=== PATIENT | male | born 1955 | race Caucasian/White ===

== ENCOUNTER 2023-09-29 19:34 | Emergency (ER) | payer MEDICARE ==
[~2023-09-29] VITALS: Ht 182.8 cm; Wt 71.2 kg
[2023-09-29] MEDS ORDERED: Ziprasidone Mesylate 20 MG VIAL IM ONE (19:50)
[2023-09-29 21:14] LABS: BILIRUBIN Negative (Negative); BLOOD 3+ (Negative); CLARITY Clear (Clear); COLOR Orange (Yellow); GLUCOSE Negative (Negative); KETONE Negative (Negative); LEUKO ESTERASE Negative (Negative); NITRITE Negative (Negative); PH 6.5 (4.5-8.0); UROBILINOGEN 0.2 E.U./dl (0.0-1.0)
[2023-09-29 21:17] LABS: BASO # 0.1 10*3/uL (0.0-0.1); EOS # 0.1 10*3/uL (0.0-0.4); HEMATOCRIT 41.8 % (42.0-52.0); LYMPH % 27.4 % (27.0-41.0); MEAN CELL VOLUME 91.1 fl (80.0-94.0); MEAN CORPUSCULAR HGB 28.8 pg (27.0-31.0); MEAN CORPUSCULAR HGB CONC 31.6 g/dl (33.0-37.0); MEAN PLATELET VOLUME 10.3 fl (9.6-12.3); MONO # 0.8 10*3/uL (0.1-1.0); MONO % 11.1 % (3.0-9.0); NEUT # 4.3 10*3/uL (2.3-7.9); NEUT % 58.4 % (47.0-73.0); PLATELET COUNT AUTOMATED 281 10*3/uL (130-400); RED BLOOD COUNT 4.59 10*6/uL (4.50-5.90); RED CELL DISTRI WIDTH 17.2 % (0-14.5); WHITE BLOOD COUNT 7.3 10*3/uL (4.8-10.8)
[2023-09-29 21:21] LABS: BACTERIA 1+; RBC TNTC rbc/hpf (0-2); URINE AMPHETAMINES Negative (1000ng/ml); URINE BARBITURATES Negative (200ng/ml); URINE BENZODIAZEPINES Negative (200ng/ml); URINE CANNABINOIDS (THC) Negative (50ng/ml); URINE COCAINE Negative (300ng/ml); URINE METHADONE Negative (300ng/ml); URINE OPIATES Negative (300ng/ml); URINE PHENCYCLIDINE Negative (25ng/ml)
[2023-09-29 21:37] LABS: ALKALINE PHOSPHATASE 91 U/L (46-116); BUN 17 mg/dl (9-23); CHLORIDE 102 mmol/L (98-107); CPK 66 U/L (34-171); POTASSIUM 4.2 mmol/L (3.4-5.1); SGPT/ALT 17 U/L (5-49); TOTAL PROTEIN 7.6 gm/dL (6.0-8.0)
[2023-09-29 21:38] LABS: ETHYL ALCOHOL < 3.0 mg/dl (<3)
[2023-09-29] MEDS ORDERED: VITAMIN D250 MC1 PO (23:19)
[2023-09-29] MEDS ORDERED: RISPERDAL CONST25 MG IM (23:22)
[2023-09-29] MEDS ORDERED: RISPERDAL0.5 MG PO (23:23)
[2023-09-29] MEDS ORDERED: DEPAKENE S250 MG/5 M PO (23:24)
[2023-09-29] MEDS ORDERED: DULCOLAX10 M1 R (23:26)
[2023-09-29] MEDS ORDERED: EXELON1 EAC1 T (23:29)
== END 2023-09-30 00:38 | disposition home or self-care (01) ==
LOC: ED 19:34
PROVIDERS: Nurse Practitioner Family
DX: F63.81 Intermittent explosive disorder (principal); Z20.822 Contact with and (suspected) exposure to COVID-19; F03.90 Unspecified dementia, unspecified severity, without behavioral disturbance, psychotic disturbance, mood disturbance, and anxiety; Z79.899 Other long term (current) drug therapy

== ENCOUNTER 2023-09-29 22:59 | Inpatient (IN) | payer MEDICARE ==
[~2023-09-29] VITALS: Ht 172.7 cm; Wt 66.7 kg
[2023-09-29] MEDS ORDERED: VITAMIN D250 MC1 PO (23:19)
[2023-09-29] MEDS ORDERED: RISPERDAL CONST25 MG IM (23:22)
[2023-09-29] MEDS ORDERED: RISPERDAL0.5 MG PO (23:23)
[2023-09-29] MEDS ORDERED: DEPAKENE S250 MG/5 M PO (23:24)
[2023-09-29] MEDS ORDERED: DULCOLAX10 M1 R (23:26)
[2023-09-29] MEDS ORDERED: EXELON1 EAC1 T (23:29)
[2023-09-29] MEDS ORDERED: LORazepam 1 MG TAB PO PRN (23:35)
[2023-09-29] MEDS ORDERED: Ziprasidone Mesylate 20 MG VIAL IM PRN (23:35)
[2023-09-30] MEDS ORDERED: Magnesium Hydroxide 30 ML UDC PO PRN (00:35)
[2023-09-30] MEDS ORDERED: MG-AL HYDROXIDE/SIMETICONE 30 ML UDC PO PRN (00:35)
[2023-09-30] MEDS ORDERED: ACETAMINOPHEN 325 MG TAB PO PRN (00:35)
[2023-09-30 00:40] VITALS: BP 132/76
[2023-09-30] MEDS ORDERED: Menthol/Zinc Oxide 4 GM THIN T PRN (00:40)
[2023-09-30 08:00] VITALS: BP 132/76
[2023-09-30 08:19] LABS: VITAMIN D, 25-HYDROXY 26.9 ng/mL (30-100)
[2023-09-30] MEDS ORDERED: Rivastigmine Tartrate 9.5 MG/24 HR PATCH T SCH (09:00)
[2023-09-30] MEDS ORDERED: RISPERIDONE 1 MG TAB PO SCH (09:00)
[2023-09-30 20:00] VITALS: BP 108/57
[2023-09-30] MEDS ORDERED: Memantine Hydrochloride 5 MG TAB PO SCH (21:00)
[2023-09-30] MEDS ORDERED: RISPERIDONE 1 MG ODT BC SCH (21:00)
[2023-09-30] MEDS ORDERED: Ziprasidone Mesylate 20 MG VIAL IM ONE (21:10)
[2023-09-30] MEDS ORDERED: LORazepam 1 MG TAB PO ONE (21:15)
[2023-09-30] MEDS ORDERED: Water, Sterile 10 ML VIAL IM ONE (21:25)
[2023-09-30] MEDS ORDERED: DIVALPROEX SODIUM 125 MG CAP PO SCH (21:42)
[2023-10-01 08:00] VITALS: BP 108/95
[2023-10-01] MEDS ORDERED: CITALOPRAM 20 MG TAB PO SCH (09:00)
[2023-10-01] MEDS ORDERED: ERGOCALCIFEROL 50,000 IU CAP (1.25 MG) PO ONE ×2 (09:45→16:15)
[2023-10-01] MEDS ORDERED: hydrOXYzine hydrochloride 50 MG/ML VIAL IM PRN (17:40)
[2023-10-01] MEDS ORDERED: hydrOXYzine hydrochloride 50 MG/ML VIAL IM ONE (20:20)
[2023-10-01] MEDS ORDERED: Ziprasidone Mesylate 20 MG VIAL IM ONE (20:20)
[2023-10-01] MEDS ORDERED: Water, Sterile 10 ML VIAL IM ONE (20:20)
[2023-10-01] MEDS ORDERED: Water, Sterile 10 ML VIAL ONE (20:29)
[2023-10-02 08:00] VITALS: BP 111/55
[2023-10-02] MEDS ORDERED: Memantine Hydrochloride 5 MG TAB PO SCH (09:00)
[2023-10-02 10:10] LABS: BASO # 0.1 10*3/uL (0.0-0.1); BASO % 0.8 % (0.0-1.0); EOS # 0.1 10*3/uL (0.0-0.4); EOS % 1.4 % (1.0-4.0); HEMATOCRIT 38.1 % (42.0-52.0); LYMPH # 1.7 10*3/uL (1.3-4.4); LYMPH % 22.4 % (27.0-41.0); MEAN CELL VOLUME 91.1 fl (80.0-94.0); MEAN CORPUSCULAR HGB 29.2 pg (27.0-31.0); MEAN PLATELET VOLUME 10.7 fl (9.6-12.3); MONO # 0.9 10*3/uL (0.1-1.0); MONO % 12.1 % (3.0-9.0); NEUT # 4.6 10*3/uL (2.3-7.9); NEUT % 62.8 % (47.0-73.0); PLATELET COUNT AUTOMATED 267 10*3/uL (130-400); RED BLOOD COUNT 4.18 10*6/uL (4.50-5.90); RED CELL DISTRI WIDTH 17.1 % (0-14.5); WHITE BLOOD COUNT 7.4 10*3/uL (4.8-10.8)
[2023-10-02 10:31] LABS: ALKALINE PHOSPHATASE 87 U/L (46-116); BUN 15 mg/dl (9-23); CHLORIDE 105 mmol/L (98-107); SGPT/ALT 14 U/L (5-49); TOTAL PROTEIN 7.1 gm/dL (6.0-8.0)
[2023-10-02] MEDS ORDERED: Albuterol Sulf/Ipratropium 3 ML VIAL NEB PRN ×2 (12:00→15:30)
[2023-10-02] MEDS ORDERED: Ziprasidone Mesylate 20 MG VIAL IM PRN (20:50)
[2023-10-02] MEDS ORDERED: Water, Sterile 10 ML VIAL IM PRN (20:55)
[2023-10-02] MEDS ORDERED: LORazepam 1 MG TAB PO PRN (20:58)
[2023-10-03 09:18] VITALS: BP 112/90
[2023-10-03] MEDS ORDERED: CITALOPRAM 20 MG TAB PO SCH (09:55)
[2023-10-03] MEDS ORDERED: Ziprasidone Mesylate 20 MG VIAL IM PRN (10:00)
[2023-10-03] MEDS ORDERED: Memantine Hydrochloride 10 MG TAB PO SCH ×2 (11:20→21:00)
[2023-10-03] MEDS ORDERED: RIVASTIGMINE 13.3 MG/24 HR TDM T SCH (11:55)
[2023-10-03] MEDS ORDERED: DIVALPROEX SODIUM 125 MG CAP PO SCH (13:00)
[2023-10-03 20:00] VITALS: BP 136/91
[2023-10-03] MEDS ORDERED: Haloperidol Lactate 5 MG/ML AMP IM PRN (21:35)
[2023-10-04 08:00] VITALS: BP 122/72
[2023-10-04] MEDS ORDERED: RIVASTIGMINE 13.3 MG/24 HR TDM T SCH (09:00)
[2023-10-04] MEDS ORDERED: medroxyPROGESTERone acetate 10 MG TAB PO SCH (13:00)
[2023-10-04 20:00] VITALS: BP 120/82
[2023-10-05 07:33] VITALS: BP 124/70
[2023-10-05] MEDS ORDERED: RISPERIDONE 1 MG ODT BC SCH (13:00)
[2023-10-05] MEDS ORDERED: GUAIFENESIN 600 MG TAB ER PO SCH (13:55)
[2023-10-05 20:00] VITALS: BP 119/76
[2023-10-06 08:00] VITALS: BP 102/58
[2023-10-06 20:00] VITALS: BP 135/80
[2023-10-06] MEDS ORDERED: medroxyPROGESTERone acetate 10 MG TAB PO SCH (21:00)
[2023-10-07 07:38] VITALS: BP 131/77
[2023-10-07] MEDS ORDERED: DIVALPROEX SODIUM 125 MG CAP PO SCH (13:00)
[2023-10-07 20:00] VITALS: BP 115/93
[2023-10-07] MEDS ORDERED: GUAIFENESIN 10 ML UDC PO PRN (20:50)
[2023-10-08 07:51] VITALS: BP 126/72
[2023-10-08] MEDS ORDERED: ERGOCALCIFEROL 50,000 IU CAP (1.25 MG) PO SCH (09:00)
[2023-10-08 20:00] VITALS: BP 141/68
[2023-10-09 07:05] LABS: BASO # 0.1 10*3/uL (0.0-0.1); BASO % 0.5 % (0.0-1.0); HEMATOCRIT 40.9 % (42.0-52.0); LYMPH # 1.3 10*3/uL (1.3-4.4); LYMPH % 11.7 % (27.0-41.0); MEAN CELL VOLUME 90.3 fl (80.0-94.0); MEAN CORPUSCULAR HGB 29.6 pg (27.0-31.0); MEAN CORPUSCULAR HGB CONC 32.8 g/dl (33.0-37.0); MEAN PLATELET VOLUME 10.2 fl (9.6-12.3); MONO # 1.3 10*3/uL (0.1-1.0); MONO % 11.6 % (3.0-9.0); NEUT # 8.1 10*3/uL (2.3-7.9); NEUT % 75.8 % (47.0-73.0); PLATELET COUNT AUTOMATED 290 10*3/uL (130-400); RED BLOOD COUNT 4.53 10*6/uL (4.50-5.90); RED CELL DISTRI WIDTH 16.5 % (0-14.5); WHITE BLOOD COUNT 10.7 10*3/uL (4.8-10.8)
[2023-10-09 07:28] LABS: ALKALINE PHOSPHATASE 83 U/L (46-116); BUN 11 mg/dl (9-23); CHLORIDE 106 mmol/L (98-107); POTASSIUM 3.9 mmol/L (3.4-5.1); SGPT/ALT 30 U/L (5-49); TOTAL PROTEIN 7.3 gm/dL (6.0-8.0)
[2023-10-09 08:58] VITALS: BP 130/97; BP 139/83
[2023-10-09] MEDS ORDERED: hydrOXYzine hydrochloride 50 MG/ML VIAL IM PRN (11:30)
[2023-10-09 15:20] LABS: BILIRUBIN 1+ (Negative); BLOOD 2+ (Negative); CLARITY Clear (Clear); COLOR Dark Yellow (Yellow); GLUCOSE Negative (Negative); KETONE 2+ (Negative); LEUKO ESTERASE Negative (Negative); NITRITE Negative (Negative); SPECIFIC GRAVITY >= 1.030 (1.001-1.030)
[2023-10-09 15:36] LABS: BACTERIA 1+; HYALINE CAST 0-2; MUCOUS 1+
[2023-10-09 19:09] LABS: ABG BASE EXCESS 1.4 mmol/L (-2.0-2.0); ARTERIAL BLOOD GAS PH 7.486 (7.35-7.45)
[2023-10-09] MEDS ORDERED: SODIUM CHLORIDE 0.9% 1,000 ML IV SCH ×3 (20:15→20:55)
[2023-10-09] MEDS ORDERED: SODIUM CHLORIDE 0.9% 2,000 ML IV ONE (20:50)
[2023-10-10] MEDS ORDERED: RISPERDAL0.5 MG PO (02:28)
[2023-10-10] MEDS ORDERED: EXELON1 EAC1 T (02:29)
[2023-10-10] MEDS ORDERED: VALPROIC ACI50 MG/ML PO (02:31)
== END 2023-10-09 21:07 | disposition short-term general hospital (02) | DRG 883 ==
LOC: 3N 22:59
PROVIDERS: Counselor Professional; Family Medicine; Internal Medicine; Nurse Practitioner Women's Health; ADMIT Psychiatry & Neurology Psychiatry; ATTEND Psychiatry & Neurology Psychiatry
PROC: 0HBRXZZ Excision of Toe Nail, External Approach (ICD-10-PCS; principal; 2023-09-30)
PROC: 0HBRXZZ Excision of Toe Nail, External Approach (ICD-10-PCS; 2023-09-30)
PROC: 0HBRXZZ Excision of Toe Nail, External Approach (ICD-10-PCS; 2023-09-30)
PROC: 0HBRXZZ Excision of Toe Nail, External Approach (ICD-10-PCS; 2023-09-30)
PROC: 0HBRXZZ Excision of Toe Nail, External Approach (ICD-10-PCS; 2023-09-30)
PROC: 0HBRXZZ Excision of Toe Nail, External Approach (ICD-10-PCS; 2023-09-30)
PROC: 0HBRXZZ Excision of Toe Nail, External Approach (ICD-10-PCS; 2023-09-30)
PROC: 0HBRXZZ Excision of Toe Nail, External Approach (ICD-10-PCS; 2023-09-30)
PROC: 0HBRXZZ Excision of Toe Nail, External Approach (ICD-10-PCS; 2023-09-30)
PROC: 0HBRXZZ Excision of Toe Nail, External Approach (ICD-10-PCS; 2023-09-30)
DX: F63.81 Intermittent explosive disorder (principal); F02.A11 Dementia in other diseases classified elsewhere, mild, with agitation; G93.40 Encephalopathy, unspecified; M62.82 Rhabdomyolysis; G30.9 Alzheimer's disease, unspecified; D64.9 Anemia, unspecified; Z66 Do not resuscitate; R73.9 Hyperglycemia, unspecified; R31.9 Hematuria, unspecified; R27.9 Unspecified lack of coordination; I87.8 Other specified disorders of veins; B35.1 Tinea unguium; E55.9 Vitamin D deficiency, unspecified; Z51.5 Encounter for palliative care

== ENCOUNTER 2023-10-12 15:36 | Inpatient (IN) | payer MEDICARE ==
[~2023-10-12] VITALS: Wt 64.9 kg
[~2023-10-12 15:36] MED LIST: CHAIR CUSHION DEVICE ONE; DEPAKENE S250 MG/5 M PO; DULCOLAX10 M1 R; EXELON1 EAC1 T; FOAM BANDAGE 1 EACH BANDAGE T ONE; FOAM BANDAGE 4X4 T ONE; HEEL PROTECTOR DEVICE ONE; Protector, Heel/Elbow (PAIR) DEVICE ONE; RISPERDAL CONST25 MG IM; RISPERDAL0.5 MG PO; RIVASTIGMINE1 EAC2 T; VALPROIC ACI50 MG/ML PO; VITAMIN D250 MC1 PO; ZITHROMAX250 MG PO
[2023-10-12] MEDS ORDERED: Magnesium Hydroxide 30 ML UDC PO PRN (17:50)
[2023-10-12] MEDS ORDERED: MG-AL HYDROXIDE/SIMETICONE 30 ML UDC PO PRN (17:50)
[2023-10-12] MEDS ORDERED: ACETAMINOPHEN 325 MG TAB PO PRN (17:50)
[2023-10-12] MEDS ORDERED: Menthol/Zinc Oxide 4 GM THIN T PRN (18:05)
[2023-10-12] MEDS ORDERED: Water, Sterile 10 ML VIAL IM PRN (19:55)
[2023-10-12] MEDS ORDERED: LORazepam 1 MG TAB PO PRN (19:55)
[2023-10-12] MEDS ORDERED: Ziprasidone Mesylate 20 MG VIAL IM PRN (19:55)
[2023-10-12 20:00] VITALS: BP 130/65
[2023-10-12] MEDS ORDERED: VALPROIC ACID 250 MG/5 ML UDC PO SCH (21:00)
[2023-10-12] MEDS ORDERED: hydrOXYzine pamoate 25 MG CAP PO SCH (21:00)
[2023-10-12] MEDS ORDERED: RISPERIDONE 0.5 MG TAB PO SCH (22:00)
[2023-10-13 06:42] LABS: BASO % 0.4 % (0.0-1.0); EOS % 0.2 % (1.0-4.0); HEMATOCRIT 35.8 % (42.0-52.0); LYMPH # 1.7 10*3/uL (1.3-4.4); LYMPH % 20.4 % (27.0-41.0); MEAN CELL VOLUME 90.2 fl (80.0-94.0); MEAN CORPUSCULAR HGB 29.2 pg (27.0-31.0); MEAN CORPUSCULAR HGB CONC 32.4 g/dl (33.0-37.0); MEAN PLATELET VOLUME 10.9 fl (9.6-12.3); MONO % 11.4 % (3.0-9.0); NEUT # 5.6 10*3/uL (2.3-7.9); PLATELET COUNT AUTOMATED 348 10*3/uL (130-400); RED BLOOD COUNT 3.97 10*6/uL (4.50-5.90); RED CELL DISTRI WIDTH 16.1 % (0-14.5); WHITE BLOOD COUNT 8.3 10*3/uL (4.8-10.8)
[2023-10-13 07:16] LABS: ALKALINE PHOSPHATASE 87 U/L (46-116); BUN 13 mg/dl (9-23); CHLORIDE 107 mmol/L (98-107); CHOLESTEROL 147 mg/dL (<200); LDL CHOLESTEROL 90 mg/dL (9-159); POTASSIUM 3.6 mmol/L (3.4-5.1); SGPT/ALT 37 U/L (5-49); TOTAL PROTEIN 6.4 gm/dL (6.0-8.0); TRIGLYCERIDES 92 mg/dl (<150); VALPROIC ACID (DEPAKENE) 12.8 ug/ml (50-100)
[2023-10-13 07:34] VITALS: BP 123/73
[2023-10-13 07:37] LABS: VITAMIN D, 25-HYDROXY 24.8 ng/mL (30-100)
[2023-10-13] MEDS ORDERED: CEFDINIR 300 MG CAP PO SCH (09:00)
[2023-10-13] MEDS ORDERED: AZITHROMYCIN 250 MG TAB PO SCH (10:00)
[2023-10-13] MEDS ORDERED: RIVASTIGMINE 13.3 MG/24 HR TDM T SCH (10:00)
[2023-10-13] MEDS ORDERED: LORazepam 0.5 MG TAB PO SCH (13:00)
[2023-10-13 20:00] VITALS: BP 131/78
[2023-10-13] MEDS ORDERED: medroxyPROGESTERone acetate 10 MG TAB PO SCH (21:00)
[2023-10-14 07:22] LABS: BASO # 0.1 10*3/uL (0.0-0.1); BASO % 0.7 % (0.0-1.0); EOS # 0.2 10*3/uL (0.0-0.4); EOS % 2.2 % (1.0-4.0); HEMATOCRIT 34.9 % (42.0-52.0); LYMPH # 2.4 10*3/uL (1.3-4.4); LYMPH % 31.9 % (27.0-41.0); MEAN CELL VOLUME 90.6 fl (80.0-94.0); MEAN CORPUSCULAR HGB 29.4 pg (27.0-31.0); MEAN CORPUSCULAR HGB CONC 32.4 g/dl (33.0-37.0); MEAN PLATELET VOLUME 10.8 fl (9.6-12.3); MONO # 0.7 10*3/uL (0.1-1.0); MONO % 9.1 % (3.0-9.0); NEUT # 4.2 10*3/uL (2.3-7.9); NEUT % 54.9 % (47.0-73.0); PLATELET COUNT AUTOMATED 349 10*3/uL (130-400); RED BLOOD COUNT 3.85 10*6/uL (4.50-5.90); RED CELL DISTRI WIDTH 16.2 % (0-14.5); WHITE BLOOD COUNT 7.6 10*3/uL (4.8-10.8)
[2023-10-14 07:32] VITALS: BP 131/68
[2023-10-14 07:47] LABS: BUN 13 mg/dl (9-23); CHLORIDE 108 mmol/L (98-107); POTASSIUM 3.5 mmol/L (3.4-5.1)
[2023-10-14] MEDS ORDERED: Memantine Hydrochloride 5 MG TAB PO SCH (09:00)
[2023-10-14] MEDS ORDERED: LEPTOSPERMUM HONEY 4 X 5 INCH WOUND DRESSING T ONE (12:44)
[2023-10-14] MEDS ORDERED: FOAM BANDAGE 5X5 T ONE ×2 (12:44)
[2023-10-14] MEDS ORDERED: FOAM BANDAGE HEEL T ONE (12:44)
[2023-10-14] MEDS ORDERED: HEEL PROTECTOR DEVICE ONE (12:44)
[2023-10-14] MEDS ORDERED: Albuterol Sulf/Ipratropium 3 ML VIAL NEB PRN (14:45)
[2023-10-14] MEDS ORDERED: GUAIFENESIN/DEXTROMETHORPHAN 10 ML UDC PO PRN (18:10)
[2023-10-14 19:10] VITALS: BP 128/74
[2023-10-15 07:34] LABS: BASO # 0.1 10*3/uL (0.0-0.1); BASO % 0.6 % (0.0-1.0); EOS # 0.1 10*3/uL (0.0-0.4); EOS % 1.2 % (1.0-4.0); HEMATOCRIT 34.8 % (42.0-52.0); LYMPH # 2.2 10*3/uL (1.3-4.4); LYMPH % 25.1 % (27.0-41.0); MEAN CELL VOLUME 90.9 fl (80.0-94.0); MEAN CORPUSCULAR HGB 28.7 pg (27.0-31.0); MEAN CORPUSCULAR HGB CONC 31.6 g/dl (33.0-37.0); MEAN PLATELET VOLUME 10.1 fl (9.6-12.3); MONO % 11.1 % (3.0-9.0); NEUT # 5.4 10*3/uL (2.3-7.9); NEUT % 60.8 % (47.0-73.0); PLATELET COUNT AUTOMATED 398 10*3/uL (130-400); RED BLOOD COUNT 3.83 10*6/uL (4.50-5.90); WHITE BLOOD COUNT 8.8 10*3/uL (4.8-10.8)
[2023-10-15 07:51] VITALS: BP 136/70
[2023-10-15 08:08] LABS: BUN 11 mg/dl (9-23); CHLORIDE 105 mmol/L (98-107); POTASSIUM 3.5 mmol/L (3.4-5.1)
[2023-10-15] MEDS ORDERED: BREXPIPRAZOLE 1 MG TABLET PO SCH (09:00)
[2023-10-15] MEDS ORDERED: Memantine Hydrochloride 5 MG TAB PO SCH (09:00)
[2023-10-15] MEDS ORDERED: FOAM BANDAGE 5X5 T ONE (16:04)
[2023-10-15 20:00] VITALS: BP 147/72
[2023-10-16 07:41] VITALS: BP 118/48
[2023-10-16] MEDS ORDERED: VALPROIC ACID 250 MG/5 ML UDC PO SCH (13:00)
[2023-10-16] MEDS ORDERED: DIVALPROEX SODIUM 125 MG CAP PO SCH (14:30)
[2023-10-16 18:58] VITALS: BP 122/56
[2023-10-16] MEDS ORDERED: Memantine Hydrochloride 10 MG TAB PO SCH (21:00)
[2023-10-17 07:35] VITALS: BP 131/52
[2023-10-17] MEDS ORDERED: BREXPIPRAZOLE 2 MG TABLET PO SCH (09:00)
[2023-10-17] MEDS ORDERED: Memantine Hydrochloride 5 MG TAB PO SCH (09:00)
[2023-10-17 20:00] VITALS: BP 113/82
[2023-10-17] MEDS ORDERED: medroxyPROGESTERone acetate 10 MG TAB PO SCH (21:00)
[2023-10-17] MEDS ORDERED: DIAZEPAM 10 MG/2 ML SYR IM ONE (21:10)
[2023-10-18 08:00] VITALS: BP 112/80
[2023-10-18] MEDS ORDERED: DIAZEPAM 10 MG/2 ML SYR IM PRN (08:05)
[2023-10-18] MEDS ORDERED: DIAZEPAM 5 MG TAB PO PRN (08:20)
[2023-10-18] MEDS ORDERED: medroxyPROGESTERone acetate 10 MG TAB PO SCH (09:00)
[2023-10-18] MEDS ORDERED: LITHIUM CARBONATE 300 MG TAB PO SCH (09:00)
[2023-10-18] MEDS ORDERED: Memantine Hydrochloride 10 MG TAB PO SCH (09:00)
[2023-10-18 20:00] VITALS: BP 125/67
[2023-10-19 07:38] VITALS: BP 106/81
[2023-10-20 08:00] VITALS: BP 132/79
[2023-10-20] MEDS ORDERED: hydrOXYzine pamoate 25 MG CAP PO PRN (08:45)
[2023-10-20] MEDS ORDERED: BREXPIPRAZOLE 1 MG TABLET PO SCH (09:00)
[2023-10-20 20:00] VITALS: BP 131/75
[2023-10-21 07:25] VITALS: BP 112/100
[2023-10-21] MEDS ORDERED: Dextromethorphan/Quinidine 20-10 mg cap PO SCH (09:00)
[2023-10-21 18:47] VITALS: BP 132/86
[2023-10-22 07:38] VITALS: BP 110/64
[2023-10-22 08:00] LABS: BASO # 0.1 10*3/uL (0.0-0.1); BASO % 0.7 % (0.0-1.0); EOS # 0.1 10*3/uL (0.0-0.4); HEMATOCRIT 42.4 % (42.0-52.0); LYMPH # 2.4 10*3/uL (1.3-4.4); LYMPH % 21.5 % (27.0-41.0); MEAN CELL VOLUME 91.4 fl (80.0-94.0); MEAN CORPUSCULAR HGB 29.1 pg (27.0-31.0); MEAN CORPUSCULAR HGB CONC 31.8 g/dl (33.0-37.0); MEAN PLATELET VOLUME 9.7 fl (9.6-12.3); MONO % 8.9 % (3.0-9.0); NEUT # 7.5 10*3/uL (2.3-7.9); NEUT % 67.1 % (47.0-73.0); PLATELET COUNT AUTOMATED 534 10*3/uL (130-400); RED BLOOD COUNT 4.64 10*6/uL (4.50-5.90); RED CELL DISTRI WIDTH 14.9 % (0-14.5); WHITE BLOOD COUNT 11.2 10*3/uL (4.8-10.8)
[2023-10-22 08:25] LABS: ALKALINE PHOSPHATASE 102 U/L (46-116); BUN 11 mg/dl (9-23); CHLORIDE 101 mmol/L (98-107); SGPT/ALT 38 U/L (5-49); TOTAL PROTEIN 7.7 gm/dL (6.0-8.0)
[2023-10-22 20:00] VITALS: BP 127/69
[2023-10-23 08:00] VITALS: BP 137/74
[2023-10-23 20:00] VITALS: BP 133/58
[2023-10-23] MEDS ORDERED: RAMELTEON 8 MG TAB PO SCH (21:00)
[2023-10-24 20:00] VITALS: BP 140/82
[2023-10-24] MEDS ORDERED: BREXPIPRAZOLE 2 MG TABLET PO SCH (21:00)
[2023-10-25 06:34] LABS: BASO # 0.1 10*3/uL (0.0-0.1); BASO % 0.7 % (0.0-1.0); EOS % 0.2 % (1.0-4.0); HEMATOCRIT 39.7 % (42.0-52.0); LYMPH % 17.6 % (27.0-41.0); MEAN CORPUSCULAR HGB 29.5 pg (27.0-31.0); MEAN CORPUSCULAR HGB CONC 33.5 g/dl (33.0-37.0); MEAN PLATELET VOLUME 9.9 fl (9.6-12.3); MONO % 9.3 % (3.0-9.0); NEUT % 71.6 % (47.0-73.0); PLATELET COUNT AUTOMATED 502 10*3/uL (130-400); RED BLOOD COUNT 4.51 10*6/uL (4.50-5.90); WHITE BLOOD COUNT 11.2 10*3/uL (4.8-10.8)
[2023-10-25 06:55] LABS: BUN 13 mg/dl (9-23); CHLORIDE 103 mmol/L (98-107)
[2023-10-25 07:30] VITALS: BP 139/76
[2023-10-25] MEDS ORDERED: LITHIUM CARB300 MG PO (09:53)
[2023-10-25] MEDS ORDERED: RAMELTEON8 MG PO (09:53)
[2023-10-25] MEDS ORDERED: REXULTI2 MG PO (09:53)
[2023-10-25] MEDS ORDERED: MEMANTINE HCL10 MG PO (09:53)
[2023-10-25] MEDS ORDERED: MEDROXYPROGESTE10 M1 PO (09:53)
[2023-10-25] MEDS ORDERED: RIVASTIGMINE1 EAC2 T (09:53)
== END 2023-10-25 13:28 | DRG 883 ==
LOC: 5E 15:36 → 3N 15:57
PROVIDERS: Counselor Professional; Registered Nurse; Student in an Organized Health Care Education/Training Program; ADMIT Psychiatry & Neurology Psychiatry; ATTEND Psychiatry & Neurology Psychiatry
DX: F63.81 Intermittent explosive disorder (principal); M62.82 Rhabdomyolysis; F02.A11 Dementia in other diseases classified elsewhere, mild, with agitation; L89.211 Pressure ulcer of right hip, stage 1; L89.622 Pressure ulcer of left heel, stage 2; Z66 Do not resuscitate; G30.9 Alzheimer's disease, unspecified; D64.9 Anemia, unspecified; R73.9 Hyperglycemia, unspecified; E55.9 Vitamin D deficiency, unspecified; Z51.5 Encounter for palliative care